=== PATIENT | female | born 1970 | race Caucasian/White ===

== ENCOUNTER 2020-03-18 13:28 | Emergency (ER) | payer SELFPAY ==
[2020-03-18] MEDS ORDERED: LACTATED RINGERS SOLUTION 1000 ML INFUS.BAG IV ONE (13:35)
[2020-03-18] MEDS ORDERED: ACETAMINOPHEN 1000 MG/100 ML VIAL (NON FORMULARY) IVPB ONE (13:35)
[2020-03-18] MEDS ORDERED: ONDANSETRON 4 MG/2 ML VIAL IVPUSH ONE (13:38)
[2020-03-18 13:59] VITALS: BP 136/84; PULSE 106; TEMP 98.5; BMI 25.6
[2020-03-18 14:14] LABS: EPITHELIAL CELLS FEW /hpf
[2020-03-18 14:28] LABS: EOS % 0.1 % (0-4.5); HEMATOCRIT 43.5 % (32.4-45.2); HEMOGLOBIN 14.3 GM/dl (10.7-15.3); MCH 29.3 pg (25.7-33.7); MCHC 32.8 g/dl (32.0-36.0); MEAN CELL VOLUME 89.4 fl (80-96); MEAN PLT VOLUME 7.9 fl (7.5-11.1); MONO % 3.2 % (3.8-10.2); NEUT % 77.7 % (42.8-82.8); PLATELET COUNT 359 K/MM3 (134-434); RBC 4.87 M/mm3 (3.60-5.2); RDW 12.7 % (11.6-15.6); WHITE BLOOD COUNT 8.4 K/mm3 (4.0-10.8)
[2020-03-18 14:59] LABS: ALBUMIN 4.9 g/dl (3.4-5.0); BILIRUBIN,TOTAL 0.7 mg/dl (0.2-1); CALCIUM 9.2 mg/dl (8.5-10); CREATININE 0.7 mg/dl (0.55-1.3); POTASSIUM 3.6 mmol/L (3.5-5.1); TOT PROT 7.2 g/dl (6.4-8.2)
== END 2020-03-18 16:51 | disposition home or self-care (01) ==
LOC: FER 13:28 → SUPCPDRO 13:28 → FER 16:51
PROC: 3E0333Z Introduction of Anti-inflammatory into Peripheral Vein, Percutaneous Approach (ICD-10-PCS; principal; 2020-03-18)
PROC: 3E033GC Introduction of Other Therapeutic Substance into Peripheral Vein, Percutaneous Approach (ICD-10-PCS; 2020-03-18)
DX: Q44.6 Cystic disease of liver (principal); R10.9 Unspecified abdominal pain
CPT/HCPCS: 36415; 74176-TC; 80053; 81003; 81015; 83605; 83690; 84703; 85025; 87086; 99284-25; J0131